=== PATIENT | male | born 1980 | race Caucasian/White ===

== ENCOUNTER 2017-02-06 15:17 | Day surgery (SDC) | payer MEDICAID ==
[~2017-02-06] VITALS: Ht 172.7 cm; Wt 108.5 kg
[~2017-02-06 15:17] MED LIST: CYCL5TAB PO; OXYC-229 PO
[2017-02-06] MEDS ORDERED: LACTATED RINGERS 1,000 ML IV SCH (16:07)
[2017-02-06 16:09] VITALS: BP 121/83
[2017-02-06] MEDS ORDERED: LORA-445 PO (16:09)
[2017-02-06] MEDS ORDERED: BUPIVACAINE/PF-EPI 0.5% 1:200K ONE (17:27)
[2017-02-06] MEDS ORDERED: FENTANYL PF 100 MCG/2ML ONE (17:36)
[2017-02-06] MEDS ORDERED: ONDANSETRON 2MG/ML, 2ML ONE (17:45)
[2017-02-06] MEDS ORDERED: PROPOFOL 10 MG/ML, 20ML ONE (17:45)
[2017-02-06] MEDS ORDERED: CEFAZOLIN 1,000 MG ONE (17:45)
[2017-02-06] MEDS ORDERED: DEXAMETHASONE 4 MG/ML, 1ML ONE (17:45)
[2017-02-06] MEDS ORDERED: PROMETHAZINE 25 MG/ML, 1ML IV PRN (18:30)
[2017-02-06] MEDS ORDERED: ONDANSETRON 2MG/ML, 2ML IVPush PRN (18:30)
[2017-02-06] MEDS ORDERED: LABETALOL 5MG/ML, 20ML IV PRN (18:30)
[2017-02-06] MEDS ORDERED: FENTANYL PF 100 MCG/2ML IV PRN (18:30)
[2017-02-06] MEDS ORDERED: MEPERIDINE/PF 25MG/0.5ML IVPush PRN (18:30)
[2017-02-06] MEDS ORDERED: MIDAZOLAM 1 MG/ML, 2ML IV PRN (18:30)
[2017-02-06] MEDS ORDERED: HYDROmorphone 1 MG/ML, 1ML IV PRN (18:30)
[2017-02-06] MEDS ORDERED: OXYcodone 5 MG/5 ML ORAL.SOL UDC PO PRN (18:30)
[2017-02-06] MEDS ORDERED: hydrALAzine 20 MG/ML, 1ML IV PRN (18:30)
[2017-02-06] MEDS ORDERED: OXYcodone 5 MG/5 ML ORAL.SOL UDC ONE (18:31)
== END 2017-02-06 19:10 ==
LOC: OR 15:17
PROVIDERS: ATTEND Orthopaedic Surgery
DX: Z47.2 Encounter for removal of internal fixation device (principal); E66.9 Obesity, unspecified; Z87.39 Personal history of other diseases of the musculoskeletal system and connective tissue; Z87.891 Personal history of nicotine dependence
CPT/HCPCS: 20680; J0690; J1100; J2405; J2704; J3010; J7120

== ENCOUNTER → 2018-08-14 | Outpatient (CLI) | payer OTHER, MEDICAID ==
[~2018-08-14] MED LIST changes: +AMOX-291 PO; +LORA-445 PO; +OMNIPAQUE 350 MG/ML, 100ML BOTTLE ONE; +OXYB10TA PO; -OXYC-229 PO; +OXYC-307 PO
== END | disposition home or self-care (01) ==
LOC: RAD 15:59
PROVIDERS: ATTEND Urology
DX: N48.89 Other specified disorders of penis (principal); N35.013 Post-traumatic anterior urethral stricture
CPT/HCPCS: 72193; Q9967

== ENCOUNTER 2018-08-15 13:25 | Day surgery (SDC) | payer OTHER, MEDICAID ==
[~2018-08-15] VITALS: Ht 172.7 cm; Wt 109.0 kg
[~2018-08-15 13:25] MED LIST changes: -AMOX-291 PO; -OMNIPAQUE 350 MG/ML, 100ML BOTTLE ONE; -OXYB10TA PO
[2018-08-15] MEDS ORDERED: LACTATED RINGERS 1,000 ML IV SCH (13:57)
[2018-08-15 14:20] VITALS: BP 126/89
[2018-08-15] MEDS ORDERED: OXYB10TA PO (14:38)
[2018-08-15] MEDS ORDERED: OXYC-307 PO (14:38)
[2018-08-15] MEDS ORDERED: AMOX-291 PO (14:38)
[2018-08-15] MEDS ORDERED: FENTANYL PF 100 MCG/2ML ONE (14:53)
[2018-08-15] MEDS ORDERED: MIDAZOLAM 1 MG/ML, 2ML ONE (14:53)
[2018-08-15] MEDS ORDERED: ACETAMINOPHEN 500 MG TABLET PO ONE (15:00)
[2018-08-15] MEDS ORDERED: OXYcodone IR 5MG TABLET PO ONE (15:00)
[2018-08-15] MEDS ORDERED: ONDANSETRON 2MG/ML, 2ML ONE (15:41)
[2018-08-15] MEDS ORDERED: PROPOFOL 10 MG/ML, 20ML ONE (15:41)
[2018-08-15] MEDS ORDERED: DEXAMETHASONE 4 MG/ML, 1ML ONE (15:41)
[2018-08-15] MEDS ORDERED: HALOPERIDOL 5 MG/ML IV PRN (16:30)
[2018-08-15] MEDS ORDERED: ONDANSETRON 2MG/ML, 2ML IV PRN (16:30)
[2018-08-15] MEDS ORDERED: FENTANYL PF 100 MCG/2ML IV PRN (16:30)
[2018-08-15] MEDS ORDERED: ONDANSETRON ODT 8 MG PO PRN (16:30)
[2018-08-15] MEDS ORDERED: PROMETHAZINE 12.5 MG SUPP PR PRN (16:30)
[2018-08-15] MEDS ORDERED: PROMETHAZINE 25 MG/ML, 1ML IV PRN (16:30)
[2018-08-15] MEDS ORDERED: MIDAZOLAM 1 MG/ML, 2ML IV PRN (16:30)
[2018-08-15] MEDS ORDERED: OXYcodone 5 MG/5 ML ORAL.SOL UDC PO PRN (16:30)
[2018-08-15] MEDS ORDERED: hydrALAzine 20 MG/ML, 1ML IV PRN (16:30)
[2018-08-15] MEDS ORDERED: MORPHINE SULFATE 4 MG/ML, 1ML IVPush PRN (16:30)
[2018-08-15] MEDS ORDERED: ALBUTEROL SULFATE 2.5 MG/3 ML NPPB PRN (16:30)
[2018-08-15] MEDS ORDERED: LABETALOL 5MG/ML, 20ML IV PRN (16:30)
[2018-08-15] MEDS ORDERED: MEPERIDINE/PF 25MG/0.5ML IVPush PRN (16:30)
[2018-08-15] MEDS ORDERED: DIAZEPAM 5 MG/ML, 2ML IVPush PRN (16:30)
[2018-08-15] MEDS ORDERED: EPHEDRINE 50 MG/ML, 1ML IVPush PRN (16:30)
[2018-08-15] MEDS ORDERED: HYDROmorphone 1 MG/ML, 1ML IV PRN (16:30)
[2018-08-15] MEDS ORDERED: OMNIPAQUE 350 MG/ML, 50 ML BOTTLE ONE (18:08)
== END 2018-08-15 18:45 | disposition home or self-care (01) ==
LOC: OR 13:25
PROVIDERS: ATTEND Urology
DX: N35.013 Post-traumatic anterior urethral stricture (principal); E66.9 Obesity, unspecified; Z72.89 Other problems related to lifestyle; Z79.899 Other long term (current) drug therapy
CPT/HCPCS: 10140; 52005; 74420; 87070; 87075; 87102; 87205; C1758; C1769; J1100; J2250; J2405; J2704; J3010; J7120; Q9967

== ENCOUNTER → 2019-09-11 | Outpatient (CLI) | payer OTHER, MEDICAID ==
[~2019-09-11] MED LIST changes: +AMOX-291 PO; +OXYB10TA2 PO
== END | disposition home or self-care (01) ==
LOC: RAD 11:34
PROVIDERS: ATTEND Nurse Practitioner
DX: M17.11 Unilateral primary osteoarthritis, right knee (principal); M71.21 Synovial cyst of popliteal space [Baker], right knee; M79.89 Other specified soft tissue disorders

== ENCOUNTER 2020-06-16 06:52 | Observation (INO) | payer MEDICAID, OTHER ==
[~2020-06-16] VITALS: Ht 172.7 cm; Wt 134.6 kg
[~2020-06-16 06:52] MED LIST changes: -OXYB10TA2 PO; +OXYB10TA26 PO
--- NOTE | 2020-06-16 07:00 | NUR ---
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
[2020-06-16] MEDS ORDERED: TRAZ-175 PO (07:17)
[2020-06-16] MEDS ORDERED: GABA600T7 PO (07:17)
[2020-06-16] MEDS ORDERED: PROMETHAZINE 25 MG/ML, 1ML IM ONE (07:30)
[2020-06-16] MEDS ORDERED: PANTOPRAZOLE 40 MG IV IVPush ONE (08:00)
[2020-06-16] MEDS ORDERED: FAMOTIDINE 20 MG/2 ML IVPush ONE (08:00)
[2020-06-16] MEDS ORDERED: ONDANSETRON 2MG/ML, 2ML IVPush ONE ×2 (08:00→12:00)
[2020-06-16] MEDS ORDERED: SODIUM CHLORIDE FLUSH 10ML SYR IVF ONE (08:00)
[2020-06-16] MEDS ORDERED: PANTOPRAZOLE 40 MG IV ONE (08:02)
[2020-06-16] MEDS ORDERED: ONDANSETRON 2MG/ML, 2ML ONE ×2 (08:02→11:45)
[2020-06-16] MEDS ORDERED: HYDROmorphone 1 MG/ML, 1ML INJ ONE ×2 (08:02→10:05)
[2020-06-16] MEDS ORDERED: FAMOTIDINE 20 MG/2 ML ONE (08:02)
[2020-06-16] MEDS: HYDROmorphone 2 MG/ML, 1ML IVPush PRN ×2 (08:11→10:09)
[2020-06-16 08:16] LABS: BASOPHILS # (AUTO) 0.02 x10^3/uL (0-0.1); BASOPHILS % (AUTO) 0 % (0-1); EOSINOPHILS # (AUTO) 0.04 x10^3/uL (0-0.4); EOSINOPHILS % (AUTO) 1 % (1-7); LYMPHOCYTES # (AUTO) 1.32 x10^3/uL (1-3.4); LYMPHOCYTES % (AUTO) 20 % (22-44); MD NO; MEAN CORPUSCULAR HEMOGLOBIN 31.1 pg (27.5-34.5); MEAN CORPUSCULAR HGB CONC 33.6 g/dL (33.2-36.2); MEAN PLATELET VOLUME 7.6 fL (7.4-10.4); MONOCYTES % (AUTO) 9 % (2-9); NEUTROPHILS # (AUTO) 4.76 x10^3/uL (1.8-6.8); NEUTROPHILS % (AUTO) 71 % (42-75); PLATELET COUNT 226 x10^3/uL (130-400); RED BLOOD COUNT 5.22 x10^6/uL (4.38-5.82); RED CELL DISTRIBUTION WIDTH 13.7 % (9.4-14.8)
[2020-06-16 08:23] LABS: ALANINE AMINOTRANSFERASE 81 U/L (12-78); ALBUMIN 3.4 g/dL (3.4-5.0); ANION GAP 10 mmol/L (5-15); CALCIUM 8.6 mg/dL (8.5-10.1); CHLORIDE 109 mmol/L (98-107)
[2020-06-16 08:26] LABS: ALKALINE PHOSPHATASE 51 U/L (45-117); BILIRUBIN,TOTAL 1.4 mg/dL (0.2-1.0); CREATININE 1.21 mg/dL (0.7-1.3); TOTAL PROTEIN 7.9 g/dL (6.4-8.2)
[2020-06-16] MEDS ORDERED: OMNIPAQUE 350 MG/ML, 100ML BOTTLE ONE (08:50)
[2020-06-16] MEDS ORDERED: MAALOX/HYOSCYAMINE/LIDOCAINE 45 ML BTL ONE (10:06)
--- NOTE | 2020-06-16 10:12 | NUR ---
PT MEDICATED WITH SECOND DOSE OF 1MG DILAUDID IVP AND GIVEN A GI COCKTAIL FOR BURNING SENSATION IN THROAT.
[2020-06-16 10:21] LABS: MICROSCOPIC NOT IND
[2020-06-16] MEDS ORDERED: MAALOX/HYOSCYAMINE/LIDOCAINE 45 ML BTL PO ONE (10:30)
[2020-06-16] MEDS ORDERED: ONDANSETRON ODT 4 MG ONE (11:42)
--- NOTE | 2020-06-16 11:53 | NUR ---
BREAK RN: PATIENT MEDICATED PER EMAR WITH ZOFRAN. PATIENT AOX4 VSS NAD AT THIS TIME. WAITING TO GIVE REPORT FOR PATIENT TO GO UPSTAIRS.
--- NOTE | 2020-06-16 12:26 | NUR ---
TRIED CALLING REPORT TO FLOOR RN, SHE WILL CALL BACK.
--- NOTE | 2020-06-16 12:32 | NUR ---
SBAR GIVEN TO MEHUL LOVE ON [facility] FOR TRANSFER OF PATIENT CARE.
--- NOTE | 2020-06-16 12:59 | NUR ---
PATIENT TRANSFERRED TO FLOOR VIA GURNEY, ALL PATIENT BELONGINGS GATHERED AND TAKEN WITH PATIENT.
[2020-06-16] MEDS ORDERED: ASA/APAP/ CAFFEINE TABLET PO PRN (13:00)
[2020-06-16] MEDS ORDERED: GUAIFENESIN/DM 200-20MG, 10ML UDC PO PRN (13:00)
[2020-06-16] MEDS ORDERED: LABETALOL 5MG/ML, 20ML IVPush PRN (13:00)
[2020-06-16] MEDS ORDERED: hydrALAzine 20 MG/ML, 1ML IVPush PRN (13:00)
[2020-06-16] MEDS ORDERED: MELATONIN 5 MG TABLET PO PRN (13:00)
[2020-06-16 13:07] LABS: BASOPHILS # (AUTO) 0.03 x10^3/uL (0-0.1); BASOPHILS % (AUTO) 0 % (0-1); EOSINOPHILS # (AUTO) 0.08 x10^3/uL (0-0.4); EOSINOPHILS % (AUTO) 1 % (1-7); LYMPHOCYTES # (AUTO) 1.88 x10^3/uL (1-3.4); LYMPHOCYTES % (AUTO) 24 % (22-44); MD NO; MEAN CORPUSCULAR HEMOGLOBIN 31.2 pg (27.5-34.5); MEAN CORPUSCULAR HGB CONC 33.6 g/dL (33.2-36.2); MEAN PLATELET VOLUME 7.5 fL (7.4-10.4); MONOCYTES # (AUTO) 0.83 x10^3/uL (0.2-0.8); MONOCYTES % (AUTO) 11 % (2-9); NEUTROPHILS % (AUTO) 64 % (42-75); PLATELET COUNT 237 x10^3/uL (130-400); RED BLOOD COUNT 5.19 x10^6/uL (4.38-5.82); RED CELL DISTRIBUTION WIDTH 13.7 % (9.4-14.8)
[2020-06-16] MEDS: KETOROLAC 30 MG/1 ML IM PRN ×2 (14:04→20:35)
[2020-06-16 14:57] VITALS: BP 149/86
[2020-06-16] MEDS: D5%-0.45NACL+KCL 20MEQ 1,000 ML IV SCH ×2 (15:07→22:53)
[2020-06-16] MEDS ORDERED: GABA-827 PO (15:16)
[2020-06-16] MEDS: ONDANSETRON ODT 4 MG PO PRN ×2 (18:02→23:19)
[2020-06-16] MEDS: BACLOFEN 10 MG TABLET PO PRN (18:03)
[2020-06-16 18:52] VITALS: BP 136/78
[2020-06-16] MEDS: ACETAMINOPHEN 325 MG TABLET PO PRN (20:34)
[2020-06-16] MEDS: ENOXAPARIN 40 MG/0.4 ML SQ SCH (20:35)
[2020-06-16] MEDS: BUTALB/APAP/CAFFEINE 50MG/325MG/40MG PO PRN (23:27)
[2020-06-17 00:54] VITALS: BP 130/81
[2020-06-17] MEDS: ONDANSETRON 2MG/ML, 2ML IVPush PRN ×3 (02:44→17:13)
[2020-06-17] MEDS: BACLOFEN 10 MG TABLET PO PRN (03:09)
[2020-06-17] MEDS: ACETAMINOPHEN 325 MG TABLET PO PRN (03:09)
[2020-06-17] MEDS: KETOROLAC 30 MG/1 ML IM PRN ×2 (03:10→12:49)
[2020-06-17] MEDS: PROMETHAZINE 25 MG/ML, 1ML IM PRN ×2 (05:27→20:39)
[2020-06-17 05:36] LABS: ALBUMIN 3.5 g/dL (3.4-5.0); ANION GAP 8 mmol/L (5-15); CALCIUM 8.7 mg/dL (8.5-10.1); CHLORIDE 111 mmol/L (98-107)
[2020-06-17 05:42] LABS: ALANINE AMINOTRANSFERASE 87 U/L (12-78); ALKALINE PHOSPHATASE 48 U/L (45-117); BILIRUBIN,TOTAL 1.4 mg/dL (0.2-1.0); CREATININE 1.33 mg/dL (0.7-1.3)
[2020-06-17 07:36] VITALS: BP 149/85
[2020-06-17] MEDS: SENNA/DOCUSATE TABLET PO SCH (08:10)
[2020-06-17] MEDS: BUTALB/APAP/CAFFEINE 50MG/325MG/40MG PO PRN ×2 (08:10→14:20)
[2020-06-17] MEDS: D5%-0.45NACL+KCL 20MEQ 1,000 ML IV SCH ×2 (09:23→16:38)
[2020-06-17] MEDS: ONDANSETRON ODT 4 MG PO PRN (10:18)
[2020-06-17 12:15] VITALS: BP 138/91
[2020-06-17] MEDS: MORPHINE SULFATE 4 MG/ML, 1ML IVPush PRN (18:19)
[2020-06-17 18:31] VITALS: BP 141/92
[2020-06-17] MEDS: ENOXAPARIN 40 MG/0.4 ML SQ SCH (20:27)
[2020-06-17] MEDS: KETOROLAC 30 MG/1 ML IV PRN (22:21)
[2020-06-18 00:27] VITALS: BP 128/83
[2020-06-18] MEDS: ONDANSETRON 2MG/ML, 2ML IVPush PRN ×3 (00:51→15:36)
[2020-06-18] MEDS: D5%-0.45NACL+KCL 20MEQ 1,000 ML IV SCH ×3 (01:01→16:39)
[2020-06-18] MEDS: BUTALB/APAP/CAFFEINE 50MG/325MG/40MG PO PRN ×3 (01:14→21:42)
[2020-06-18 08:23] VITALS: BP 115/73
[2020-06-18] MEDS: KETOROLAC 30 MG/1 ML IV PRN ×3 (08:35→21:43)
[2020-06-18] MEDS: SENNA/DOCUSATE TABLET PO SCH ×2 (08:35→09:00)
[2020-06-18] MEDS: PROMETHAZINE 25 MG/ML, 1ML IM PRN ×2 (10:39→20:13)
[2020-06-18] MEDS: MORPHINE SULFATE 4 MG/ML, 1ML IVPush PRN (10:39)
[2020-06-18 10:46] LABS: BASOPHILS # (AUTO) 0.03 x10^3/uL (0-0.1); BASOPHILS % (AUTO) 1 % (0-1); EOSINOPHILS # (AUTO) 0.17 x10^3/uL (0-0.4); EOSINOPHILS % (AUTO) 3 % (1-7); LYMPHOCYTES # (AUTO) 1.28 x10^3/uL (1-3.4); LYMPHOCYTES % (AUTO) 23 % (22-44); MD NO; MEAN CORPUSCULAR HEMOGLOBIN 31.1 pg (27.5-34.5); MEAN CORPUSCULAR HGB CONC 33.9 g/dL (33.2-36.2); MEAN PLATELET VOLUME 7.5 fL (7.4-10.4); MONOCYTES # (AUTO) 0.51 x10^3/uL (0.2-0.8); MONOCYTES % (AUTO) 9 % (2-9); NEUTROPHILS # (AUTO) 3.58 x10^3/uL (1.8-6.8); NEUTROPHILS % (AUTO) 64 % (42-75); PLATELET COUNT 178 x10^3/uL (130-400); RED BLOOD COUNT 5.26 x10^6/uL (4.38-5.82); RED CELL DISTRIBUTION WIDTH 13.8 % (9.4-14.8)
[2020-06-18] MEDS ORDERED: OMNIPAQUE 350 MG/ML, 100ML BOTTLE ONE (11:20)
[2020-06-18 14:39] VITALS: BP 128/84
[2020-06-18 18:49] VITALS: BP 161/97
[2020-06-18] MEDS: BACLOFEN 10 MG TABLET PO PRN (21:42)
[2020-06-18] MEDS: ENOXAPARIN 40 MG/0.4 ML SQ SCH (21:42)
[2020-06-19 00:17] VITALS: BP 102/68
[2020-06-19] MEDS: D5%-0.45NACL+KCL 20MEQ 1,000 ML IV SCH ×2 (01:48→11:19)
[2020-06-19] MEDS: PROMETHAZINE 25 MG/ML, 1ML IM PRN (05:33)
[2020-06-19] MEDS: SENNA/DOCUSATE TABLET PO SCH (08:36)
[2020-06-19 08:58] VITALS: BP 159/93
[2020-06-19] MEDS ORDERED: ENOXAPARIN 30 MG/0.3 ML SQ SCH (09:38)
== END 2020-06-19 14:56 | disposition home or self-care (01) ==
LOC: ED 10:23 → EDIP 11:01 → OBSVTOIN 11:01 → INTOOBSV 11:01 → 3N 13:08
PROVIDERS: ADMIT Hospitalist; ATTEND Family Medicine
DX: R10.9 Unspecified abdominal pain (principal); K76.0 Fatty (change of) liver, not elsewhere classified; R73.9 Hyperglycemia, unspecified; G47.30 Sleep apnea, unspecified; E66.9 Obesity, unspecified; E86.0 Dehydration
CPT/HCPCS: 36415; 74021; 74177; 80053; 81003; 82728; 83605; 83615; 83690; 83735; 85025; 85379; 96361; 96372; 96374; 96375; 96376; 99285; C9113; G0378; J1170; J1650; J1885; J2270; J2405; J2550; J3480; J3490; Q0162; Q9967

== ENCOUNTER 2020-06-19 19:59 | Emergency (ER) | payer OTHER ==
[~2020-06-19] VITALS: Ht 170.2 cm; Wt 126.3 kg
[~2020-06-19 19:59] MED LIST changes: +GABA-827 PO; +GABA600T7 PO; +TRAZ-175 PO
[2020-06-19] MEDS ORDERED: SODIUM CHLORIDE 0.9% 1,000 ML IV ONE (20:15)
[2020-06-19] MEDS ORDERED: HYDROmorphone 1 MG/ML, 1ML INJ ONE (20:19)
[2020-06-19] MEDS ORDERED: ONDANSETRON 2MG/ML, 2ML ONE (20:19)
[2020-06-19] MEDS ORDERED: SODIUM CHLORIDE 0.9% 1,000ML IVBOLUS ONE (20:30)
[2020-06-19] MEDS ORDERED: ONDANSETRON 2MG/ML, 2ML IVPush ONE (20:30)
[2020-06-19] MEDS ORDERED: SODIUM CHLORIDE FLUSH 10ML SYR IVF ONE (20:30)
[2020-06-19] MEDS ORDERED: HYDROmorphone 2 MG/ML, 1ML IVPush PRN (20:30)
[2020-06-19 20:48] LABS: ALANINE AMINOTRANSFERASE 80 U/L (12-78); ALBUMIN 3.6 g/dL (3.4-5.0); ANION GAP 9 mmol/L (5-15); BASOPHILS # (AUTO) 0.03 x10^3/uL (0-0.1); BASOPHILS % (AUTO) 0 % (0-1); CALCIUM 9.2 mg/dL (8.5-10.1); CHLORIDE 111 mmol/L (98-107); CREATININE 1.51 mg/dL (0.7-1.3); EOSINOPHILS # (AUTO) 0.16 x10^3/uL (0-0.4); EOSINOPHILS % (AUTO) 2 % (1-7); LYMPHOCYTES # (AUTO) 1.82 x10^3/uL (1-3.4); LYMPHOCYTES % (AUTO) 21 % (22-44); MD NO; MEAN CORPUSCULAR HEMOGLOBIN 30.9 pg (27.5-34.5); MEAN CORPUSCULAR HGB CONC 33.4 g/dL (33.2-36.2); MEAN CORPUSCULAR VOLUME 92.5 fL (81-97); MEAN PLATELET VOLUME 7.7 fL (7.4-10.4); MONOCYTES # (AUTO) 0.78 x10^3/uL (0.2-0.8); MONOCYTES % (AUTO) 9 % (2-9); NEUTROPHILS # (AUTO) 6.11 x10^3/uL (1.8-6.8); NEUTROPHILS % (AUTO) 69 % (42-75); PLATELET COUNT 287 x10^3/uL (130-400); RED BLOOD COUNT 5.69 x10^6/uL (4.38-5.82); RED CELL DISTRIBUTION WIDTH 13.8 % (9.4-14.8)
[2020-06-19 20:50] LABS: ALKALINE PHOSPHATASE 52 U/L (45-117); BILIRUBIN,TOTAL 0.6 mg/dL (0.2-1.0); TOTAL PROTEIN 8.3 g/dL (6.4-8.2)
--- NOTE | 2020-06-19 20:54 | NUR ---
PT IN XRAY.
--- NOTE | 2020-06-19 21:04 | NUR ---
COLLECTED URINE SAMPLE.
[2020-06-19 21:09] VITALS: BP 158/92
[2020-06-19 21:18] LABS: MICROSCOPIC AUTO
[2020-06-19] MEDS ORDERED: PROMETHAZINE 25 MG/ML, 1ML IM ONE (21:30)
[2020-06-19] MEDS ORDERED: PROMETHAZINE 25 MG/ML, 1ML ONE (21:46)
--- NOTE | 2020-06-19 21:50 | NUR ---
PT MEDICATED PER MAR.
== END 2020-06-19 21:55 | disposition home or self-care (01) ==
LOC: ED 20:59
DX: N39.0 Urinary tract infection, site not specified (principal); R10.84 Generalized abdominal pain; R11.2 Nausea with vomiting, unspecified; R10.32 Left lower quadrant pain; R00.0 Tachycardia, unspecified
CPT/HCPCS: 36415; 74022; 80053; 81001; 83690; 85025; 87086; 96361; 96372; 96374; 96375; 99284; J1170; J2405; J2550; J7030